=== PATIENT | female | born 1995 | race Hispanic/Latino ===

== ENCOUNTER 2018-01-21 20:47 | Emergency (ER) | payer SELFPAY ==
[2018-01-21] MEDS ORDERED: IBUPROFEN 800 MG TAB ONE (21:20)
[2018-01-21 21:28] LABS: APPEARANCE,URINE Clear (CLEAR); BILIRUBIN,URINE Negative (NEGATIVE); COLOR,URINE Yellow (YELLOW); GLUCOSE, URINE (UA) Negative (NEGATIVE); KETONES,URINE Negative (NEGATIVE); LEUKOCYTE ESTERASE ,URINE Trace (NEGATIVE); NITRATE,URINE Negative (NEGATIVE); OCCULT BLOOD,URINE Trace (NEGATIVE); PROTEIN,URINE Negative (NEGATIVE); UROBILINOGEN,URINE 0.2 mg/dL (0.2-1.0)
[2018-01-21 21:30] LABS: HCG,QUAL RESULT NEGATIVE (NEGATIVE)
[2018-01-21 21:45] LABS: AMPHET/METH SCREEN,URINE NEGATIVE (NEGATIVE); BARBITURATE SCREEN, URINE NEGATIVE (NEGATIVE); BENZODIAZEPINES SCREEN,URINE NEGATIVE (NEGATIVE); CANNABINOID SCREEN,URINE POSITIVE (NEGATIVE); COCAINE SCREEN,URINE NEGATIVE (NEGATIVE); OPIATE SCREEN,URINE NEGATIVE (NEGATIVE); PHENCYCLIDINE SCREEN,URINE NEGATIVE (NEGATIVE)
[2018-01-21 21:52] LABS: BACTERIA,URINE Rare /HPF (None Seen); RBC,URINE None Seen /HPF (0-1); WBC,URINE 0-1 /HPF (0-1)
== END 2018-01-21 22:20 | disposition home or self-care (01) ==
LOC: EDH 20:47
DX: R51 Headache (principal); F12.10 Cannabis abuse, uncomplicated; Z72.0 Tobacco use
CPT/HCPCS: 80305; 81001; 81025

== ENCOUNTER 2019-01-27 14:42 | Emergency (ER) | payer OTHER ==
[2019-01-27] MEDS ORDERED: ONDANSETRON ODT 4 MG TAB ONE (15:21)
[2019-01-27] MEDS ORDERED: ACETAMINOPHEN EXTRA STRENGTH 500 MG TABLET ONE (15:21)
[2019-01-27 15:27] LABS: APPEARANCE,URINE Clear (CLEAR); BILIRUBIN,URINE Negative (NEGATIVE); COLOR,URINE Yellow (YELLOW); GLUCOSE, URINE (UA) Negative (NEGATIVE); KETONES,URINE Negative (NEGATIVE); LEUKOCYTE ESTERASE ,URINE Large (NEGATIVE); NITRATE,URINE Negative (NEGATIVE); OCCULT BLOOD,URINE Small (NEGATIVE); PH,URINE 7.5 (5.0-8.0); PROTEIN,URINE POS 1+ (NEGATIVE)
[2019-01-27 15:41] LABS: HCG,QUAL RESULT NEGATIVE (NEGATIVE)
[2019-01-27 15:55] LABS: BACTERIA,URINE Few /HPF (None Seen); RBC,URINE None Seen /HPF (0-1); SQUAMOUS EPITHELIAL CELL,UR 0-2 /HPF (0-2); WBC,URINE 51-100 /HPF (0-1)
== END 2019-01-27 16:02 | disposition home or self-care (01) ==
LOC: EDH 14:42
DX: N39.0 Urinary tract infection, site not specified (principal)
CPT/HCPCS: 81001; 81025

== ENCOUNTER 2020-04-07 16:36 | Observation (INO) | payer MEDICAID ==
[2020-04-07 17:56] LABS: APPEARANCE,URINE Cloudy (CLEAR); BILIRUBIN,URINE Negative (NEGATIVE); COLOR,URINE Dark Yellow (YELLOW); GLUCOSE, URINE (UA) Negative (NEGATIVE); KETONES,URINE Trace mg/dL (NEGATIVE); LEUKOCYTE ESTERASE ,URINE Moderate (NEGATIVE); NITRATE,URINE Negative (NEGATIVE); OCCULT BLOOD,URINE Negative (NEGATIVE); PH,URINE 5.5 (5.0-8.0); PROTEIN,URINE Negative (NEGATIVE)
[2020-04-07 18:09] LABS: BACTERIA,URINE Moderate /HPF (None Seen); MUCUS,URINE Few LPF (None Seen); SQUAMOUS EPITHELIAL CELL,UR Moderate /HPF (0-2)
== END 2020-04-07 18:43 | disposition home or self-care (01) ==
LOC: LDH 16:36
PROVIDERS: ADMIT Obstetrics & Gynecology; ATTEND Obstetrics & Gynecology
DX: O26.893 Other specified pregnancy related conditions, third trimester (principal); R10.9 Unspecified abdominal pain; Z3A.29 29 weeks gestation of pregnancy
CPT/HCPCS: 81001; 87088; G0378 ×2

== ENCOUNTER 2020-06-12 01:15 | Inpatient (IN) | payer MEDICAID ==
[~2020-06-12] VITALS: Ht 154.9 cm; Wt 77.6 kg
[2020-06-12 01:28] VITALS: BP 138/86
[2020-06-12] MEDS ORDERED: PREN1TAB80 PO (01:30)
[2020-06-12 01:49] LABS: BILIRUBIN,URINE Negative (NEGATIVE); COLOR,URINE Yellow (YELLOW); GLUCOSE, URINE (UA) Negative (NEGATIVE); KETONES,URINE Trace mg/dL (NEGATIVE); LEUKOCYTE ESTERASE ,URINE Negative (NEGATIVE); NITRATE,URINE Negative (NEGATIVE); OCCULT BLOOD,URINE Negative (NEGATIVE); PROTEIN,URINE Negative (NEGATIVE)
[2020-06-12 01:57] LABS: APPEARANCE,URINE CLEAR (CLEAR)
[2020-06-12] MEDS ORDERED: OXYTOCIN-LR 20 UNITS/1000 ML 1,000 ML IV SCH ×2 (02:00→08:15)
[2020-06-12] MEDS ORDERED: AMPICILLIN 2GM+NS 100ML 100 ML IV SCH (02:00)
[2020-06-12 02:07] LABS: BACTERIA,URINE Few /HPF (None Seen); MUCUS,URINE Rare LPF (None Seen); RBC,URINE 0-1 /HPF (0-1)
[2020-06-12] MEDS: LACTATED RINGERS 1000ML IV PRN ×2 (02:11→07:12)
[2020-06-12 02:14] LABS: HEMATOCRIT 38.7 % (36-48); MEAN CORPUSCULAR HEMOGLOBIN 27.6 pg (27.0-33.0); MEAN CORPUSCULAR HGB CONC 32.6 g/dL (32.0-36.0); MEAN CORPUSCULAR VOLUME 84.7 fL (79-99); RED BLOOD CELL COUNT(AUTO) 4.57 MIL/uL (4.00-5.50); RED CELL DISTRIBUTION WIDTH 13.9 % (11.0-15.5); WHITE BLOOD COUNT (AUTO) 11.4 K/uL (4.8-10.8)
[2020-06-12] MEDS ORDERED: LACTATED RINGERS 1000ML 1,000 ML IV PRN (02:24)
[2020-06-12] MEDS ORDERED: PROMETHAZINE HCL 25 MG/ML 1ML AMPULE IM SCH (02:30)
[2020-06-12] MEDS ORDERED: MEPERIDINE-PF 50 MG/ML SYG IVP ONE (02:30)
[2020-06-12 03:09] LABS: AMPHET/METH SCREEN,URINE NEGATIVE (NEGATIVE); BARBITURATE SCREEN, URINE NEGATIVE (NEGATIVE); BENZODIAZEPINES SCREEN,URINE NEGATIVE (NEGATIVE); CANNABINOID SCREEN,URINE NEGATIVE (NEGATIVE); COCAINE SCREEN,URINE NEGATIVE (NEGATIVE); OPIATE SCREEN,URINE NEGATIVE (NEGATIVE); PHENCYCLIDINE SCREEN,URINE NEGATIVE (NEGATIVE)
[2020-06-12] MEDS ORDERED: MEPERIDINE-PF 50 MG/ML SYG ONE (03:22)
[2020-06-12] MEDS ORDERED: LACTATED RINGERS 500 ML 500 ML IV PRN (04:15)
[2020-06-12] MEDS ORDERED: EPHEDRINE SULFATE 50 MG/ML AMPULE IVP PRN (04:15)
[2020-06-12] MEDS ORDERED: NALOXONE HCL 0.4 MG/1 ML ML IV PRN (04:15)
[2020-06-12] MEDS ORDERED: ROPIVACAINE 0.2% 100ML VIAL 100 ML EP PRN (04:15)
[2020-06-12] MEDS ORDERED: LIDOCAINE HCL 1% 20 ML VIAL ONE (04:37)
[2020-06-12] MEDS: LACTATED RINGERS 1000ML 1,000 ML IV PRN ×3 (05:14→22:13)
[2020-06-12] MEDS ORDERED: FENTANYL CITRATE PF 50 MCG/1 ML 2ML VIAL ONE (05:42)
[2020-06-12] MEDS ORDERED: AMPICILLIN 1GM+NS 50ML 50 ML IV SCH (06:00)
[2020-06-12] MEDS ORDERED: OXYTOCIN 10 USP UNITS/ML 20 UNIT in LACTATED RINGERS 1000ML 1,000 ML IV SCH (07:30)
[2020-06-12 10:01] LABS: RAPID PLASMA REAGIN NONREACTIVE (NONREACTIVE)
[2020-06-12] MEDS ORDERED: ACETAMINOPHEN 325 MG TAB PO PRN (14:15)
[2020-06-12] MEDS ORDERED: DIPH,PERTUSS(ACELL),TET VAC/PF 0.5 ML VIAL IM PRN (14:15)
[2020-06-12] MEDS ORDERED: BENZOCAINE/LANOLIN/ALOE VERA 60 ML AEROSOL TP PRN (14:15)
[2020-06-12] MEDS ORDERED: WITCH HAZEL 1 PAD TP PRN (14:15)
[2020-06-12] MEDS ORDERED: ACETAMINOPHEN-CODEINE 300/30MG TAB PO PRN (14:15)
[2020-06-12] MEDS ORDERED: MEASLES/MUMPS/RUBELLA VACCINE, LIVE 0.5 ML/VIAL SQ PRN (14:15)
[2020-06-12] MEDS ORDERED: LANOLIN 30GM OINTMENT TP PRN (14:15)
[2020-06-12 14:40] VITALS: BP 105/59
[2020-06-12] MEDS: IBUPROFEN 600 MG TABLET PO PRN ×2 (14:43→21:35)
[2020-06-12 16:15] VITALS: BP 104/72
[2020-06-12 20:08] VITALS: BP 114/58
[2020-06-12] MEDS: DOCUSATE SODIUM 100 MG CAP PO SCH (21:33)
[2020-06-12 23:24] VITALS: BP 118/73
[2020-06-13 03:17] VITALS: BP 98/60
[2020-06-13] MEDS: IBUPROFEN 600 MG TABLET PO PRN ×2 (03:54→08:32)
[2020-06-13 07:03] LABS: HEMATOCRIT 28.6 % (36-48); MEAN CORPUSCULAR HEMOGLOBIN 27.2 pg (27.0-33.0); MEAN CORPUSCULAR HGB CONC 31.8 g/dL (32.0-36.0); MEAN CORPUSCULAR VOLUME 85.6 fL (79-99); RED BLOOD CELL COUNT(AUTO) 3.34 MIL/uL (4.00-5.50); RED CELL DISTRIBUTION WIDTH 14.3 % (11.0-15.5); WHITE BLOOD COUNT (AUTO) 11.5 K/uL (4.8-10.8)
[2020-06-13 07:10] VITALS: BP 93/68
[2020-06-13] MEDS: DOCUSATE SODIUM 100 MG CAP PO SCH (08:27)
--- NOTE | 2020-06-13 09:55 | NUR ---
DR. CH ROUNDED AND DISCHARGED PATIENT TO HOME. PATIENT STABLE AND DENIES ANY PROBLEMS.
[2020-06-13 10:12] LABS: HEPATITIS Bs ANTIGEN SCREEN P Negative (Negative)
[2020-06-13 11:26] VITALS: BP 99/71
--- NOTE | 2020-06-13 12:10 | NUR ---
PATIENT WAS GIVEN DISCHARGE INSTRUCTIONS AND VERBALIZED UNDERSTANDING INSTRUCTIONS GIVEN. SCRIPT FOR COLACE AND MOTRIN ISSUED AND INSTRUCTED ON DOSAGE AND FREQUENCY. PATIENT STABLE AND DENIES PAIN.
--- NOTE | 2020-06-13 12:20 | NUR ---
PATIENT WAS TAKEN VIA W/C CARRYING BABY IN ARMS TO FAMILY VEHICLE AND WAS DISCHARGED TO HER SPOUSE IN STABLE CONDITION. PATIENT DENIES PAIN AND HAS REMAINED STABLE AND AFEBRILE.
== END 2020-06-13 12:20 | disposition home or self-care (01) | DRG 560 ==
LOC: EDH 01:15 → LDH 01:16 → OBSVTOIN 01:16 → WSH 14:35
PROVIDERS: ADMIT Obstetrics & Gynecology; ATTEND Obstetrics & Gynecology
PROC: 10E0XZZ Delivery of Products of Conception, External Approach (ICD-10-PCS; principal; 2020-06-12)
PROC: 6A550ZT Pheresis of Cord Blood Stem Cells, Single (ICD-10-PCS; 2020-06-12)
PROC: 10907ZC Drainage of Amniotic Fluid, Therapeutic from Products of Conception, Via Natural or Artificial Opening (ICD-10-PCS; 2020-06-12)
PROC: 0UQGXZZ Repair Vagina, External Approach (ICD-10-PCS; 2020-06-12)
PROC: 00HU33Z Insertion of Infusion Device into Spinal Canal, Percutaneous Approach (ICD-10-PCS; 2020-06-12)
PROC: 3E0R3BZ Introduction of Anesthetic Agent into Spinal Canal, Percutaneous Approach (ICD-10-PCS; 2020-06-12)
PROC: 0UQMXZZ Repair Vulva, External Approach (ICD-10-PCS; 2020-06-12)
DX: O71.4 Obstetric high vaginal laceration alone (principal); Z37.0 Single live birth; O71.82 Other specified trauma to perineum and vulva; Z3A.38 38 weeks gestation of pregnancy
CPT/HCPCS: 36415; 80305; 81001; 85027; 86156; 86592; 86701; 86850; 86870; 86900; 86901; 87340; 87390; A4314; G0378; J0290; J2175; J2590; J3010; J3490; J7120

== ENCOUNTER 2022-07-01 09:11 | Emergency (ER) | payer MEDICAID ==
[~2022-07-01] VITALS: Ht 152.4 cm; Wt 79.4 kg
[~2022-07-01 09:11] MED LIST: PREN1TAB80 PO
[2022-07-01] MEDS ORDERED: KETOROLAC 15MG/ML VIAL (15MG/ML) IV ONE (09:30)
[2022-07-01] MEDS ORDERED: LACTATED RINGERS 1000ML 1,000 ML IV ONE (09:30)
[2022-07-01] MEDS ORDERED: ONDANSETRON 4MG INJ IVP ONE (09:30)
[2022-07-01 09:42] LABS: BASOPHILS % (AUTO) 0.4 % (0.0-5.0); EOSINOPHILS % (AUTO) 0.7 % (0.0-8.0); HEMATOCRIT 42.9 % (36-48); LYMPHOCYTES % (AUTO) 18.3 % (21.0-51.0); MEAN CORPUSCULAR VOLUME 88.3 fL (79-99); MONOCYTES % (AUTO) 5.3 % (3.0-13.0); NEUTROPHILS % (AUTO) 74.9 % (40.0-77.0); PLATELET COUNT (AUTO) 312 K/uL (130-400); RED BLOOD CELL COUNT(AUTO) 4.86 MIL/uL (4.00-5.50); RED CELL DISTRIBUTION WIDTH 11.5 % (11.0-15.5)
[2022-07-01 09:47] LABS: APPEARANCE,URINE TURBID (CLEAR); BILIRUBIN,URINE NEGATIVE (NEGATIVE); COLOR,URINE YELLOW (YELLOW); GLUCOSE, URINE (UA) NEGATIVE (NEGATIVE); KETONES,URINE NEGATIVE (NEGATIVE); LEUKOCYTE ESTERASE ,URINE LARGE (NEGATIVE); NITRATE,URINE NEGATIVE (NEGATIVE); OCCULT BLOOD,URINE MODERATE (NEGATIVE); PROTEIN,URINE 30 mg/dL (NEGATIVE)
[2022-07-01 09:49] LABS: HCG,QUALITATIVE URINE NEGATIVE (NEGATIVE)
[2022-07-01 09:56] LABS: BACTERIA,URINE Many /HPF (None Seen); RBC,URINE 26-50 /HPF (0-1); WBC,URINE >100 /HPF (0-1)
[2022-07-01 09:57] LABS: ALBUMIN 3.8 g/dL (3.5-5.0); CREATININE 0.6 mg/dL (0.5-1.5); MUCUS,URINE Few LPF (None Seen); POTASSIUM 3.9 mmol/L (3.5-5.1); TOTAL PROTEIN, SERUM 8.2 g/dL (6.0-8.3)
[2022-07-01] MEDS ORDERED: SULF1TAB42 PO (10:45)
[2022-07-01] MEDS ORDERED: IBUP-2071 PO (10:45)
[2022-07-01] MEDS ORDERED: CEFTRIAXONE 1G VIAL IVP ONE (11:00)
[2022-07-01 11:10] VITALS: BP 129/84
== END 2022-07-01 11:21 | disposition home or self-care (01) ==
LOC: EDH 09:11
DX: N12 Tubulo-interstitial nephritis, not specified as acute or chronic (principal); Z79.1 Long term (current) use of non-steroidal anti-inflammatories (NSAID)
CPT/HCPCS: 99284; 96374; 96375; 96361; 80053; 85025; 87077; 87088; 87186; 81001; 81025; 36415; J7120; J0696; J2405; J1885

== ENCOUNTER 2022-09-18 18:39 | Emergency (ER) | payer MEDICAID ==
[~2022-09-18] VITALS: Ht 154.9 cm; Wt 81.0 kg
[~2022-09-18 18:39] MED LIST changes: +IBUP-2071 PO; +SULF1TAB42 PO
[2022-09-18 18:43] VITALS: BP 133/76
[2022-09-18 19:29] LABS: APPEARANCE,URINE CLOUDY (CLEAR); BILIRUBIN,URINE NEGATIVE (NEGATIVE); COLOR,URINE LIGHT-YELLOW (YELLOW); GLUCOSE, URINE (UA) NEGATIVE (NEGATIVE); KETONES,URINE NEGATIVE (NEGATIVE); LEUKOCYTE ESTERASE ,URINE 500 Leu/uL (NEGATIVE); NITRATE,URINE NEGATIVE (NEGATIVE); OCCULT BLOOD,URINE SMALL (NEGATIVE); PH,URINE 6.5 (5.0-8.0); PROTEIN,URINE NEGATIVE (NEGATIVE); UROBILINOGEN,URINE 0.2 mg/dL (0.2-1.0)
[2022-09-18 19:46] LABS: BASOPHILS % (AUTO) 0.5 % (0.0-5.0); EOSINOPHILS % (AUTO) 0.9 % (0.0-8.0); HEMATOCRIT 44.2 % (36-48); LYMPHOCYTES % (AUTO) 27.6 % (21.0-51.0); MEAN CORPUSCULAR HEMOGLOBIN 30.1 pg (27.0-33.0); MEAN CORPUSCULAR HGB CONC 34.2 g/dL (32.0-36.0); MEAN CORPUSCULAR VOLUME 88.2 fL (79-99); MONOCYTES % (AUTO) 3.8 % (3.0-13.0); NEUTROPHILS % (AUTO) 66.7 % (40.0-77.0); PLATELET COUNT (AUTO) 353 K/uL (130-400); RED BLOOD CELL COUNT(AUTO) 5.01 MIL/uL (4.00-5.50); RED CELL DISTRIBUTION WIDTH 12.3 % (11.0-15.5); WHITE BLOOD COUNT (AUTO) 11.7 K/uL (4.8-10.8)
[2022-09-18 19:57] LABS: BACTERIA,URINE FEW /HPF (None Seen); MUCUS,URINE RARE LPF (None Seen); SQUAMOUS EPITHELIAL CELL,UR RARE /HPF (0-2); WBC,URINE 51-100 /HPF (0-1); YEAST,URINE BUDDING FEW /HPF (None Seen)
[2022-09-18] MEDS ORDERED: CEFTRIAXONE 1G VIAL IM ONE (20:00)
[2022-09-18] MEDS ORDERED: PHENAZOPYRIDINE HCL 200 MG TABLET PO ONE (20:00)
[2022-09-18 20:07] LABS: CREATININE 0.7 mg/dL (0.5-1.5); POTASSIUM 3.6 mmol/L (3.5-5.1)
[2022-09-18 20:12] LABS: ALBUMIN 3.9 g/dL (3.5-5.0); TOTAL PROTEIN, SERUM 8.4 g/dL (6.0-8.3)
[2022-09-18] MEDS ORDERED: PHEN-847 PO (20:18)
[2022-09-18] MEDS ORDERED: CEFU500T67 PO (20:18)
== END 2022-09-18 20:28 | disposition home or self-care (01) ==
LOC: EDH 18:39
DX: N39.0 Urinary tract infection, site not specified (principal); E66.9 Obesity, unspecified; Z68.33 Body mass index [BMI] 33.0-33.9, adult; Z79.899 Other long term (current) drug therapy
CPT/HCPCS: 99283; 80053; 85025; 87077; 87088; 87186; 86140; 81001; 81025; 36415; 96372; J0696

== ENCOUNTER 2022-11-19 11:53 | Emergency (ER) | payer MEDICAID ==
[~2022-11-19] VITALS: Ht 154.9 cm; Wt 80.7 kg
[~2022-11-19 11:53] MED LIST changes: +CEFU500T67 PO; +PHEN-847 PO
[2022-11-19 12:21] LABS: BASOPHILS % (AUTO) 0.4 % (0.0-5.0); EOSINOPHILS % (AUTO) 0.3 % (0.0-8.0); HEMATOCRIT 42.2 % (36-48); LYMPHOCYTES % (AUTO) 19.2 % (21.0-51.0); MEAN CORPUSCULAR HEMOGLOBIN 30.1 pg (27.0-33.0); MEAN CORPUSCULAR HGB CONC 34.6 g/dL (32.0-36.0); MONOCYTES % (AUTO) 4.6 % (3.0-13.0); PLATELET COUNT (AUTO) 403 K/uL (130-400); RED BLOOD CELL COUNT(AUTO) 4.85 MIL/uL (4.00-5.50); RED CELL DISTRIBUTION WIDTH 11.6 % (11.0-15.5); WHITE BLOOD COUNT (AUTO) 11.2 K/uL (4.8-10.8)
[2022-11-19 12:26] LABS: APPEARANCE,URINE CLEAR (CLEAR); BILIRUBIN,URINE NEGATIVE (NEGATIVE); COLOR,URINE LIGHT-YELLOW (YELLOW); GLUCOSE, URINE (UA) NEGATIVE (NEGATIVE); HCG,QUALITATIVE URINE NEGATIVE (NEGATIVE); KETONES,URINE 5 mg/dL (NEGATIVE); LEUKOCYTE ESTERASE ,URINE 75 Leu/uL (NEGATIVE); NITRATE,URINE NEGATIVE (NEGATIVE); OCCULT BLOOD,URINE SMALL (NEGATIVE); PROTEIN,URINE 30 mg/dL (NEGATIVE); UROBILINOGEN,URINE 0.2 mg/dL (0.2-1.0)
[2022-11-19 12:28] LABS: CREATININE 0.7 mg/dL (0.5-1.5); POTASSIUM 4.2 mmol/L (3.5-5.1)
[2022-11-19 12:33] LABS: ALBUMIN 4.1 g/dL (3.5-5.0); TOTAL PROTEIN, SERUM 8.5 g/dL (6.0-8.3)
[2022-11-19 12:38] LABS: BACTERIA,URINE RARE /HPF (None Seen); MUCUS,URINE FEW LPF (None Seen); SQUAMOUS EPITHELIAL CELL,UR RARE /HPF (0-2)
[2022-11-19] MEDS ORDERED: SULF1TAB42 PO (15:15)
[2022-11-19 15:21] VITALS: BP 107/72
== END 2022-11-19 15:24 | disposition home or self-care (01) ==
LOC: EDH 11:53
DX: N93.9 Abnormal uterine and vaginal bleeding, unspecified (principal); N39.0 Urinary tract infection, site not specified; R11.2 Nausea with vomiting, unspecified
CPT/HCPCS: 36415; 74176; 76856; 80053; 81001; 81025; 85025; 86850; 86900; 86901; 87088

== ENCOUNTER 2025-07-21 17:10 | Emergency (ER) | payer SELFPAY ==
[~2025-07-21] VITALS: Ht 154.9 cm; Wt 86.2 kg
--- NOTE | 2025-07-21 17:36 | ERN ---
ED Note History of Present Illness Stated Complaint: VAGINAL BLEEDING, + TEST Chief Complaint: Vaginal Bleeding Time Seen by MD: 17:13 Time Seen by Midlevel: 17:13 Dictation: The Please the patient is a 29-year-old female with no past medical history who presents to the emergency department with complaints of suprapubic abdominal pain and vaginal spotting onset yesterday. Reports she had a positive test but does not know how many weeks. Patient reports she had some bright v aginal bleeding yesterday and it stop throughout night but it started again 2 hours. Denies any saturating pads in the last 2 hours. Denies any urinary discomfort. Denies any fevers diarrhea or vomiting. Allergies: Coded Allergies: No Known Allergies (Unverified Allergy, Unknown, 06/12/20) Home Meds Active Scripts Sulfamethoxazole/Trimethoprim (Bactrim Ds Tablet) 1 Each Tablet, 1 TAB PO BID for 7 Days, #14 TAB 0 Refills Prov:ISABEL NUNN V CHEST PAIN COORDINATOR 11/19/22 Phenazopyridine HCl (Pyridium) 200 Mg Tab, 200 MG PO TIDPC for 3 Days, #9 TAB TAKE WITH FOOD TO PREVENT STOMACH UPSET. Prov:SHENG ARREAGA 09/18/22 Cefuroxime Axetil (Cefuroxime) 500 Mg Tablet, 500 MG PO BID for 10 Days, #20 TAB Prov:SHENG ARREAGA 09/18/22 Ibuprofen (Ibuprofen) 800 Mg Tablet, 800 MG PO Q8H PRN for PAIN, #30 TAB 0 Refills Prov:CLAYTON LIU MD 07/01/22 Sulfamethoxazole/Trimethoprim (Bactrim Ds Tablet) 1 Each Tablet, 1 TAB PO BID for 10 Days, #20 TAB 0 Refills Prov:CLAYTON LIU MD 07/01/22 Reported Medications Vits W-Ca,Fe,FA(<1Mg) ( Vitamins) 1 Each Tablet, 1 EACH PO DAILY, TAB 06/12/20 Past Medical History Past Medical History: No Pertinent History Additional Past Medical Hx: Obese Surgical History: None Family History: Negative Social History: Negative LMP: Jun 11, 2025 : 2 Para: 1 RN Note Reviewed/Agreed w/PFSH: Yes Review of System Dictation Constitutional: Negative for fever,chills, and weight loss Eyes: Negative for injury, pain,redness, and discharge ENT: Negative for injury,pain or swelling Cardiovascular: Negative for chest pain, palpitations, and edema Respiratory: Negative for shortness of breath, cough, and wheezing, Abdomen/GI: Negative for nausea, vomiting, diarrhea, and constipation positive abdominal pain Back: Negative for injury and pain : Negative for injury, and discharge positive for vaginal bleeding MS/Extremity: Negative for injury and deformity Skin: Negative for rash, and discoloration Neuro: Negative for headache, weakness, numbness, tingling, and seizure Psych: Negative for suicide ideation, homicidal ideation, and hallucinations Initial Vital Sign VS Vital Signs Date Time Temp Pulse Resp B/P (MAP) Pulse Ox O2 Delivery O2 Flow Rate FiO2 07/21/25 17:11 98.1 104 16 139/83 98 Room Air 0 07/21/25 17:31 21 Physical Exam Dictation Vital Signs reviewed General Appearance: Alert, oriented x 3, no acute distress, well developed, nourished. Head and Face: non-traumatic. Eyes: PERRL, pink conjunctivas, eyelid no trauma, anterior chamber with arcus senilis. Ears: Pinnas intact and no signs of trauma or erythema ear canals clear and no discharge TM no erythema Nose: No discharge, no bleeding. Oropharynx: Mouth normal, tongue pink. pharynx clear,no erythema, tonsils no exudates, no abscesses noted, mucous membrane moist Neck: Supple, non-tender, no thyromegaly, no masses, no JVD, no bruits Breast:Deferred Chest:No tenderness, no crepitus, no paradoxical movement, no retractions Lungs:Clear, well-ventilated, symmetric, no rales, no wheezing, no rhonchi, no stridor, good breath sounds bilaterally Heart: Regular rate, regular rhythm, no murmur, no gallops Vascular: no peripheral edema, Abdomen: Soft, positive bowel sounds, nondistended, no guarding, nontender, no rebound, no masses no hepatomegaly, no splenomegaly, no Ghosh's sign, no hernias. Rectal: Deferred Genital: Deferred Neurological: Normal speech, motor function intact, sensory function intact Musculoskeletal: Neck nontender, full range of motion, back nontender, full range of motion, Extremities: nontender, full range of motion Skin: Color pink, dry, no turgor, no rash, no lacerations, no abrasions, no contusions. Lymphatic: Deferred Results (Laboratory/Radiology) Laboratory/Radiology Laboratory Tests Test 07/21/25 17:30 07/21/25 17:40 Urine Color YELLOW (YELLOW) Urine Appearance CLEAR (CLEAR) Urine pH 6.0 (5.0-8.0) Urine Specific [place] 1.025 (1.001-1.031) Urine Protein NEGATIVE mg/dL (NEGATIVE) Urine Glucose (UA) NEGATIVE mg/dL (NEGATIVE) Urine Ketones NEGATIVE mg/dL (NEGATIVE) Urine Occult Blood SMALL (NEGATIVE) H Urine Nitrate NEGATIVE (NEGATIVE) Urine Bilirubin NEGATIVE mg/dL (NEGATIVE) Urine Urobilinogen 2.0 mg/dL (0.2-1.0) H Urine Leukocyte Esterase NEGATIVE Dayna/uL Urine RBC 2-5 /HPF (0-1) H Urine WBC 2-5 /HPF (0-1) H Urine Squamous Epithelial Cells RARE /HPF (0-2) Urine Bacteria MANY /HPF (None Seen) White Blood Count 8.8 K/uL (4.8-10.8) Red Blood Count 4.76 MIL/uL (4.00-5.50) Hemoglobin 15.0 g/dL (12.0-16.0) Hematocrit 43.4 % (36-48) Mean Corpuscular Volume 91.2 fL (79-99) Mean Corpuscular Hemoglobin 31.5 pg (27.0-33.0) Mean Corpuscular Hemoglobin Concent 34.6 g/dL (32.0-36.0) Red Cell Distribution Width 11.9 % (11.0-15.5) Platelet Count 332 K/uL (130-400) Mean Platelet Volume 7.9 fL (7.5-10.5) Immature Granulocyte % (Auto) 0.5 % (0-1) Neutrophils (%) (Auto) 68.2 % (40.0-77.0) Lymphocytes (%) (Auto) 22.3 % (21.0-51.0) Monocytes (%) (Auto) 8.3 % (3.0-13.0) Eosinophils (%) (Auto) 0.2 % (0.0-8.0) Basophils (%) (Auto) 0.5 % (0.0-5.0) Neutrophils # (Auto) 6.0 K/uL (1.8-7.7) Lymphocytes # (Auto) 2.0 K/uL (1.0-4.8) Monocytes # (Auto) 0.7 K/uL (0.1-1.0) Eosinophils # (Auto) 0.02 K/uL (0.00-0.70) Basophils # (Auto) 0.04 K/uL (0.00-0.20) Absolute Immature Granulocyte (auto 0.04 K/uL (0-1) Nucleated Red Blood Cells 0.0 % (0.0-0.19) Sodium Level 136 mmol/L (136-145) Potassium Level 3.3 mmol/L (3.5-5.1) L Chloride Level 100 mmol/L (101-111) L Carbon Dioxide Level 30 mmol/L (21-32) Blood Urea Nitrogen 6 mg/dL (7-18) L Creatinine 0.6 mg/dL (0.5-1.0) Glomerular Filtration Rate Calc 125 mL/min (>90) Random Glucose 101 mg/dL (70-105) Total Calcium 8.9 mg/dL (8.5-10.1) Human Chorionic Gonadotropin, Quant 1198 mIU/mL (0-5) H REASON: VAGINAL BLEEDING ORDERING PHYSICIAN: FROY RAMÍREZ PROCEDURE: OB <14 - US OB <14 WEEKS CLINICAL INFORMATION Vaginal bleeding COMPARISON None. TECHNIQUE Transabdominal sonography of the pelvis. FINDINGS Uterus: Normal. Endometrium: Normal. No gestational sac or intrauterine visualized. Adnexa: The right ovary is obscured by overlying bowel gas. Left ovary is normal in size and morphology, with normal vascularity. Free Fluid: No abnormal fluid. MEASUREMENTS Uterus (LxHxW cm): 9.9 x 5.0 x 6.4 cm Endometrial thickness: 1.6 cm Right Ovary (LxHxW cm): Not visualized Left Ovary (LxHxW cm): 2.5 x 1.9 x 3.2 cm IMPRESSION No intrauterine gestational sac identified. Given the history of positive b-hCG, the differential considerations include early non-visualized intrauterine , non-visualized ectopic and failed first trimester . Recommend close clinical follow-up with [facility] and serial b-hCG. Follow-up ultrasound is available as indicated. Nonvisualized right ovary. /[facility] Labs Reviewed?: Yes ED Course ED Course Orders Procedure Category Date Status Time Cbc With Differential LAB 07/21/25 Complete 17:20 Hcg,Quantitative LAB 07/21/25 Complete 17:20 Us Ob <14 Weeks US 07/21/25 Resulted 17:20 Acetaminophen 325 Tab PHA 07/21/25 In Process (Tylenol 325mg Tab 17:30 Basic Metabolic Panel LAB 07/21/25 Complete 17:20 Urinalysis Profile LAB 07/21/25 Complete 17:20 Culture Urine ZOHREH 07/21/25 In Process 18:00 Current Medications Medications (Trade) Dose Ordered Sig/[place] Route PRN Reason Start Time Stop Time Status Last Admin Dose Admin Acetaminophen (TYLenol 325MG TAB) 650 mg ONCE PO 07/21/25 17:30 07/21/25 21:30 07/21/25 17:38 Vital Signs Date Time Temp Pulse Resp B/P (MAP) Pulse Ox O2 Delivery O2 Flow Rate FiO2 07/21/25 17:31 98.1 104 16 139/83 98 Room Air* 0 21 07/21/25 17:11 98.1 104 16 139/83 98 Room Air 0 Medical Decision Making MDM The Please the patient is a 29-year-old female with no past medical history who presents to the emergency department with complaints of suprapubic abdominal pain and vaginal spotting onset yesterday. Reports she had a positive test but does not know how many weeks. Patient reports she had some bright vaginal bleeding yesterday and it stop throughout night but it started again 2 hours. Denies any saturating pads in the last 2 hours. Denies any urinary di scomfort. Denies any fevers diarrhea or vomiting. CBC showed no leukocytosis, no anemia, chemistry showed mild hypokalemia, mild hypochloremia, HCT of the a 1198, urinalysis negative for nitrites, negative for leukocyte esterase. No intrauterine gestational sac , could be early in . On physical exam patient is in no acute distress, nontoxic appearance. Has not saturated any pads while in ER. No significant vaginal bleeding. Vital signs remained stable. Patient instructed to follow up with OBGYN for repeat HCT in ultrasound. Labs and imaging discussed with the patient who agrees to follow up. Patient instructed to return if she develops severe abdominal pain or severe vaginal bleeding. Differential diagnosis: UTI, threatened , ectopic Need for hospitalization: Patient does not meet criteria for hospitalization. There are no social concerns with this patient. DX & DISP Disposition: Discharge Departure Impression: Primary Impression: Positive test Additional Impression: Vaginal bleeding Condition: Stable Additional Instructions: Your labs were unremarkable. You will need to follow up with your OBGYN as soon as possible and you will need a repeat lab work and Ultrasound. Get plenty of rest. If you develop severe vaginal bleeding dizziness , or severe abdominal pain please return to ER or call 911. FOLLOW-UP WITH PRIMARY CARE PROVIDER IN 1 TO 2 DAYS. TAKE MEDICATIONS DIRECTED HERE IN THE EMERGENCY ROOM. OKAY TO CONTINUE HOME MEDICATIONS UNLESS OTHERWISE DISCUSSED DURING YOUR VISIT IN THE EMERGENCY ROOM TODAY. RETURN TO YOUR NEAREST EMERGENCY ROOM IF SYMPTOMS WORSEN OR IF THERE IS NO IMPROVEMENT. CALL 911 IF YOU NEED IMMEDIATE ASSISTANCE. TAKE TYLENOL [id number] NEEDED AND IF NO CONTRAINDICATIONS ARE PRESENT. INCREASE ORAL HYDRATION. A WOUND CULTURE OR URINE CULTURE WAS ORDERED HERE IN THE EMERGENCY ROOM DEPARTMENT PLEASE FOLLOW-UP WITH PRIMARY CARE PROVIDER AND ADVISE THEM TO GET REPEAT PORTS FROM OUR FACILITY. IF YOU HAD ANY MARIELA WRAP/SPLINTS THAT WERE APPLIED HERE, PLEASE DO NOT REMOVE THEM UNTIL YOU SEE YOUR PRIMARY CARE OR SPECIALTY. Referrals: RONY CANNON MD (PCP) Time of Disposition: 19:31 I have reviewed the case, and I agree with, Diagnosis and Plan FROY RAMÍREZ CHEST PAIN COORDINATOR Jul 21, 2025 17:35
[2025-07-21 17:48] LABS: IMMATURE GRANULOCYTE ABSOLUTE 0.04 K/uL (0-1); NUCLEATED RED BLOOD CELLS 0.0 % (0.0-0.19); PLATELET COUNT (AUTO) 332 K/uL (130-400); RED BLOOD CELL COUNT(AUTO) 4.76 MIL/uL (4.00-5.50); RED CELL DISTRIBUTION WIDTH 11.9 % (11.0-15.5); WHITE BLOOD COUNT (AUTO) 8.8 K/uL (4.8-10.8)
[2025-07-21 17:50] LABS: APPEARANCE,URINE CLEAR (CLEAR); GLUCOSE, URINE (UA) NEGATIVE (NEGATIVE); LEUKOCYTE ESTERASE ,URINE NEGATIVE Leu/uL (NEGATIVE); NITRATE,URINE NEGATIVE (NEGATIVE); OCCULT BLOOD,URINE SMALL (NEGATIVE)
[2025-07-21 17:55] LABS: CREATININE 0.6 mg/dL (0.5-1.0); GLOMERULAR FILTR. RATE CALC 125.0 mL/min (>90); GLUCOSE,RANDOM 101.0 mg/dL (70-105); SODIUM SERUM 136.0 mmol/L (136-145); UREA NITROGEN, BLOOD 6.0 mg/dL (7-18)
[2025-07-21 17:57] LABS: ADD UA MICROSCOPIC YES
[2025-07-21 18:00] LABS: SQUAMOUS EPITHELIAL CELL,UR RARE /HPF (0-2)
[2025-07-21 18:22] LABS: HCG,QUANTITATIVE 1198.0 mIU/mL (0-5)
--- NOTE | 2025-07-21 19:21 | HMCIMG ---
CLINICAL INFORMATION Vaginal bleeding COMPARISON None. TECHNIQUE Transabdominal sonography of the pelvis. FINDINGS Uterus: Normal. Endometrium: Normal. No gestational sac or intrauterine visualized. Adnexa: The right ovary is obscured by overlying bowel gas. Left ovary is normal in size and morphology, with normal vascularity. Free Fluid: No abnormal fluid. MEASUREMENTS Uterus (LxHxW cm): 9.9 x 5.0 x 6.4 cm Endometrial thickness: 1.6 cm Right Ovary (LxHxW cm): Not visualized Left Ovary (LxHxW cm): 2.5 x 1.9 x 3.2 cm IMPRESSION No intrauterine gestational sac identified. Given the history of positive b-hCG, the differential considerations include early non-visualized intrauterine , non-visualized ectopic and failed first trimester . Recommend close clinical follow-up with [facility] and serial b-hCG. Follow-up ultrasound is available as indicated. Nonvisualized right ovary. /[place]
[2025-07-21 19:35] VITALS: BP 127/74; PULSE 92; RESP 16; TEMP 98.1; O2SAT 98
== END 2025-07-21 19:36 | disposition home or self-care (01) ==
LOC: EDH 17:10
DX: O20.9 Hemorrhage in early pregnancy, unspecified (principal); Z3A.00 Weeks of gestation of pregnancy not specified
CPT/HCPCS: 36415; 76801; 80048; 81001; 84702; 85025; 87086; 87186; 99284

== ENCOUNTER 2025-08-07 15:13 | Emergency (ER) | payer MEDICAID ==
[~2025-08-07] VITALS: Ht 154.9 cm; Wt 83.0 kg
--- NOTE | 2025-08-07 15:51 | NUR ---
PT PRESENTS TO ER 8 WKS PREG VAGINAL BLEEDING X2 WKS OB APPT SCHED FOR COMMING MONDAY HOWEVER BLEEDING INCREASED AND LARGE CLOTS PASSED PRIOR TO ARRIVAL AND PT CONCERNED ABOUT AT RISK
[2025-08-07 16:08] LABS: ADD UA MICROSCOPIC YES; APPEARANCE,URINE CLEAR (CLEAR); GLUCOSE, URINE (UA) NEGATIVE (NEGATIVE); LEUKOCYTE ESTERASE ,URINE 75 Leu/uL (NEGATIVE); NITRATE,URINE NEGATIVE (NEGATIVE); OCCULT BLOOD,URINE LARGE (NEGATIVE)
[2025-08-07 16:10] LABS: SQUAMOUS EPITHELIAL CELL,UR RARE /HPF (0-2); UNCLASSIFIED CRYSTAL 1 /HPF (None Seen)
[2025-08-07 16:16] LABS: IMMATURE GRANULOCYTE ABSOLUTE 0.05 K/uL (0-1); NUCLEATED RED BLOOD CELLS 0.0 % (0.0-0.19); PLATELET COUNT (AUTO) 377 K/uL (130-400); RED BLOOD CELL COUNT(AUTO) 4.61 MIL/uL (4.00-5.50); RED CELL DISTRIBUTION WIDTH 11.4 % (11.0-15.5); WHITE BLOOD COUNT (AUTO) 12.6 K/uL (4.8-10.8)
[2025-08-07 16:25] LABS: CREATININE 0.6 mg/dL (0.5-1.0); GLOMERULAR FILTR. RATE CALC 125.0 mL/min (>90); GLUCOSE,RANDOM 92.0 mg/dL (70-105); SODIUM SERUM 133.0 mmol/L (136-145); UREA NITROGEN, BLOOD 6.0 mg/dL (7-18)
[2025-08-07 16:52] LABS: HCG,QUANTITATIVE 13097.0 mIU/mL (0-5)
--- NOTE | 2025-08-07 17:26 | HMCIMG ---
CLINICAL INFORMATION Vaginal bleeding COMPARISON US OB dated 07/21/2025 TECHNIQUE Transabdominal sonography of the pelvis. FINDINGS Uterus: Gravid Gestational Sac: Single intrauterine gestational sac measuring 1.36 cm, corresponding to a gestational age of 6 weeks 3 days ??? 4 days. Yolk Sac: The Yolk sac is visualized within the gestational sac. Embryo: Bowie-rump length measures 0.3 cm, corresponding to 6 weeks 4 days ??? 4 days. Heart Activity: heart rate is 131 beats per minute. Adnexa: The bilateral ovary is normal in size and morphology, with normal vascularity. Free Fluid: No abnormal fluid. MEASUREMENTS Uterus (LxHxW cm): 9.8 x 6.9 x 5.8 cm Endometrial thickness: 1.5 cm. Right Ovary (LxHxW cm): 1.8 x 1.4 x 2.1 cm Left Ovary (LxHxW cm): 1.7 x 1.9 x 1.1 cm IMPRESSION: 1. Single viable intrauterine at 6 weeks 3-4 days gestation. 2. heart rate of 131 beats per minute. /[place]
--- NOTE | 2025-08-07 18:56 | NUR ---
Single viable intrauterine at 6 weeks 3-4 days gestation. heart rate of 131 beats per minute.
[2025-08-07 18:57] VITALS: BP 142/85; PULSE 92; RESP 16; TEMP 98.3; O2SAT 98
--- NOTE | 2025-08-07 19:01 | ERN ---
General Chief Complaint: Vaginal Bleeding Stated Complaint: VAGINAL BLEEDING, 8 WEEKS GESTATION Time Seen by MD: 15:54 Time Seen by Midlevel: 15:54 Source: patient History of Present Illness Initial Comments The patient is a 29-year-old female who is currently presenting to the emergency department for evaluation of vaginal bleeding and lower abdominal cramping. Patient reports testing positive for gonorrhea proximally one week ago and has not been treated for it. She is a A0. She has an appointment scheduled with her OBGYN in four days. Allergies: Coded Allergies: No Known Allergies (Unverified Allergy, Unknown, 06/12/20) Home Meds Active Scripts Sulfamethoxazole/Trimethoprim (Bactrim Ds Tablet) 1 Each Tablet, 1 TAB PO BID for 7 Days, #14 TAB 0 Refills Prov:ISABEL NUNNP 11/19/22 Phenazopyridine HCl (Pyridium) 200 Mg Tab, 200 MG PO TIDPC for 3 Days, #9 TAB TAKE WITH FOOD TO PREVENT STOMACH UPSET. Prov:SHENG ARREAGA 09/18/22 Cefuroxime Axetil (Cefuroxime) 500 Mg Tablet, 500 MG PO BID for 10 Days, #20 TAB Prov:SHENG ARREAGA 09/18/22 Ibuprofen (Ibuprofen) 800 Mg Tablet, 800 MG PO Q8H PRN for PAIN, #30 TAB 0 Refills Prov:CLAYTON LIU MD 07/01/22 Sulfamethoxazole/Trimethoprim (Bactrim Ds Tablet) 1 Each Tablet, 1 TAB PO BID for 10 Days, #20 TAB 0 Refills Prov:CLAYTON LIU MD 07/01/22 Reported Medications Vits W-Ca,Fe,FA(<1Mg) ( Vitamins) 1 Each Tablet, 1 EACH PO DAILY, TAB 06/12/20 Past Medical History Past Medical History: No Pertinent History Medical History Other: Obese Past Surgical History: None Family History Family History: Negative Social History Social History: Negative Female( History) : 2 Para: 1 Aborts: 0 ROS Dictation CONSTITUTIONAL: Negative except for HPI HEAD/FACE: Negative except for HPI EENT: Negative except for HPI RESPIRATORY: Negative except for HPI GASTROINTESTINAL/ABDOMINAL: Negative except for HPI GENITOURINARY: Negative except for HPI MUSCULOSKELETAL: Negative except for HPI INTEGUMENTARY: Negative except for HPI NEUROLOGICAL/PSYCH: Negative except for HPI HEMATOLOGIC/LYMPHATIC: Negative except for HPI All Systems Negative, Except as noted above. 13 point review of systems assessed and all negative except for above. Physical Exam Physical Exam Dictation Vital Signs reviewed General Appearance: Alert, oriented x 3, no acute distress, well developed, nourished. Head and Face: non-traumatic. Eyes: PERRL, pink conjunctivas, eyelid no trauma, anterior chamber with arcus senilis. Ears: Pinnas intact and no signs of trauma or erythema ear canals clear and no discharge TM no erythema Nose: No discharge, no bleeding. Oropharynx: Mouth normal, tongue pink, pharynx clear,no erythema, tonsils no exudates, no abscesses noted, mucous membrane moist Neck: Supple, non-tender, no thyromegaly, no masses, no JVD, no bruits Breast:Deferred Chest:No tenderness, no crepitus, no paradoxical movement, no retractions Lungs:Clear, well-ventilated, symmetric, no rales, no wheezing, no rhonchi, no stridor, good breath sounds bilaterally Heart: Regular rate, regular rhythm, no murmur, no gallops Vascular: no peripheral edema, Abdomen: Soft, positive bowel sounds, nondistended, no guarding, nontender, no rebound, no masses no hepatomegaly, no splenomegaly, no Ghosh's sign, no hernias. Rectal: Deferred Genital: Deferred Neurological: Normal speech, motor function intact, sensory function intact Musculoskeletal: Neck nontender, full range of motion, back nontender, full range of motion, Extremities: nontender, full range of motion Skin: Color pink, dry, no turgor, no rash, no lacerations, no abrasions, no contusions. Lymphatic: Deferred Results Laboratory and Microbiology Lab and Micro Result Laboratory Tests Test 08/07/25 15:54 08/07/25 16:09 Urine Color YELLOW (YELLOW) Urine Appearance CLEAR (CLEAR) Urine pH 7.0 (5.0-8.0) Urine Specific [place] 1.024 (1.001-1.031) Urine Protein 10 mg/dL (NEGATIVE) H Urine Glucose (UA) NEGATIVE mg/dL (NEGATIVE) Urine Ketones NEGATIVE mg/dL (NEGATIVE) Urine Occult Blood LARGE (NEGATIVE) H Urine Nitrate NEGATIVE (NEGATIVE) Urine Bilirubin NEGATIVE mg/dL (NEGATIVE) Urine Urobilinogen 3 mg/dL (0.2-1.0) H Urine Leukocyte Esterase 75 Dayna/uL (NEGATIVE) H Urine RBC 51-100 /HPF (0-1) H Urine WBC 11-25 /HPF (0-1) H Urine Squamous Epithelial Cells RARE /HPF (0-2) Urine Other Crystals (Auto) 1 /HPF (None Seen) Urine Bacteria FEW /HPF (None Seen) White Blood Count 12.6 K/uL (4.8-10.8) H Red Blood Count 4.61 MIL/uL (4.00-5.50) Hemoglobin 14.0 g/dL (12.0-16.0) Hematocrit 41.8 % (36-48) Mean Corpuscular Volume 90.7 fL (79-99) Mean Corpuscular Hemoglobin 30.4 pg (27.0-33.0) Mean Corpuscular Hemoglobin Concent 33.5 g/dL (32.0-36.0) Red Cell Distribution Width 11.4 % (11.0-15.5) Platelet Count 377 K/uL (130-400) Mean Platelet Volume 7.9 fL (7.5-10.5) Immature Granulocyte % (Auto) 0.4 % (0-1) Neutrophils (%) (Auto) 72.2 % (40.0-77.0) Lymphocytes (%) (Auto) 21.6 % (21.0-51.0) Monocytes (%) (Auto) 4.8 % (3.0-13.0) Eosinophils (%) (Auto) 0.8 % (0.0-8.0) Basophils (%) (Auto) 0.2 % (0.0-5.0) Neutrophils # (Auto) 9.1 K/uL (1.8-7.7) H Lymphocytes # (Auto) 2.7 K/uL (1.0-4.8) Monocytes # (Auto) 0.6 K/uL (0.1-1.0) Eosinophils # (Auto) 0.10 K/uL (0.00-0.70) Basophils # (Auto) 0.03 K/uL (0.00-0.20) Absolute Immature Granulocyte (auto 0.05 K/uL (0-1) Nucleated Red Blood Cells 0.0 % (0.0-0.19) Sodium Level 133 mmol/L (136-145) L Potassium Level 3.6 mmol/L (3.5-5.1) Chloride Level 97 mmol/L (101-111) L Carbon Dioxide Level 29 mmol/L (21-32) Blood Urea Nitrogen 6 mg/dL (7-18) L Creatinine 0.6 mg/dL (0.5-1.0) Glomerular Filtration Rate Calc 125 mL/min (>90) Random Glucose 92 mg/dL (70-105) Total Calcium 9.0 mg/dL (8.5-10.1) Human Chorionic Gonadotropin, Quant 05339 mIU/mL (0-5) H Labs Reviewed?: Yes MDM MDM: The patient is a 29-year-old female who is currently presenting to the emergency department for evaluation of vaginal bleeding and lower abdominal cramping. Patient reports testing positive for gonorrhea proximally one week ago and has not been treated for it. She is a A0. She has an appointment scheduled with her OBGYN in four days. On physical examination patient is in no acute distress. Initial vital signs are stable. Patient is afebrile and nontoxic appearing. CBC shows slight leukocytosis. There was no anemia or thrombocytopenia. Chemistries are stable. Urinalysis shows white blood cells in the urine. Pelvic ultrasound reveals a gestational sac measuring a proximally six weeks and three days with positive heart tones. Given that the patient has not been treated for gonorrhea I will empirically treat with ceftriaxone and azithromycin. Differential diagnosis: 1st trimester , miscarriage, urinary tract infection, STD There are no social concerns with this patient. Prescription drug management Prescriptions will include: None Medical management and examination interpretation discussions were had by me with other qualified healthcare professionals as indicated for the patient's care. ED Course Orders Procedure Category Date Status Time Cbc With Differential LAB 08/07/25 Complete 15:54 Basic Metabolic Panel LAB 08/07/25 Complete 15:54 Hcg,Quantitative LAB 08/07/25 Complete 15:54 Urinalysis Profile LAB 08/07/25 Complete 15:54 Us Ob <14 Weeks US 08/07/25 Resulted 15:54 Culture Urine ZOHREH 08/07/25 In Process 16:08 Ceftriaxone 1g Vial PHA 08/07/25 In Process (Rocephine 1g Inj) 19:30 Azithromycin PHA 08/07/25 In Process (Zithromax) 19:30 Chlamydia & Gc Pcr ZOHREH 08/07/25 Logged 19:04 Current Medications Medications (Trade) Dose Ordered Sig/[place] Route PRN Reason Start Time Stop Time Status Last Admin Dose Admin Azithromycin (Zithromax) 1,000 mg ONCE ONCE PO 08/07/25 19:30 08/07/25 19:31 Ceftriaxone Sodium (ROCEphine 1G INJ) 1 gm ONCE ONCE IM 08/07/25 19:30 08/07/25 19:31 Vital Signs Date Time Temp Pulse Resp B/P (MAP) Pulse Ox O2 Delivery O2 Flow Rate FiO2 08/07/25 18:57 98.2 92 16 142/85 98 Room Air* 0 21 08/07/25 15:55 98.2 105 16 140/87 98 Room Air* 0 21 08/07/25 15:14 98.1 113 16 142/87 98 Room Air DX & DISP Disposition: Discharge Departure Impression: Primary Impression: First trimester Additional Impressions: Vaginal bleeding, Exposure to STD Condition: Stable Additional Instructions: Your blood work today is stable. Your pelvic ultrasound reveals a gestational sac measuring six weeks and three days with positive heart tones. You were treated for chlamydia and gonorrhea with 1 g of ceftriaxone and 1 g of azithromycin. Follow up with your OBGYN on Monday as discussed. You will need a full STD panel. Referrals: SELF,REFERRAL (PCP) Time of Disposition: 19:12 I have reviewed the case, and I agree with, Diagnosis and Plan I performed the substantive portion of the visit. I have reviewed and lisa roach made and approve the management plan that is documented in the note by myself or the SHANTEL. I acknowledge for responsibility for the patient's management plan. HUY DÍAZ Aug 07, 2025 19:01
[2025-08-07] MEDS: AZITHROMYCIN 250 MG TABLET PO ONE (19:13)
== END 2025-08-07 19:25 | disposition home or self-care (01) ==
LOC: EDH 15:13
DX: O20.9 Hemorrhage in early pregnancy, unspecified (principal); Z3A.08 8 weeks gestation of pregnancy; Z79.899 Other long term (current) drug therapy
CPT/HCPCS: 99285; 76801; 80048; 84702; 85025; 87086 ×2; 87186; 87491; 87591; 81001; 36415; 96372; J0696

== ENCOUNTER 2025-08-12 14:15 | Emergency (ER) | payer MEDICAID ==
[~2025-08-12] VITALS: Ht 154.9 cm; Wt 83.0 kg
[2025-08-12 14:18] VITALS: TEMP 97.5
[2025-08-12] MEDS ORDERED: 0.9% NACL 500ML IV.SOLN 500 ML IV ONE (15:00)
--- NOTE | 2025-08-12 15:00 | ERN ---
General Chief Complaint: Vaginal Bleeding Stated Complaint: VAGINAL BLEEDING Time Seen by MD: 14:18 Source: patient History of Present Illness Initial Comments This patient is a 39-year-old female with 6 weeks of . She presented with heavy bleeding and passing clots which was associated with cramping and pain in the suprapubic region. As per patient, she had chills but denied fever. Timing/Duration: 1 week Severity: moderate Associated Symptoms: nausea/vomiting Allergies: Coded Allergies: No Known Allergies (Unverified Allergy, Unknown, 06/12/20) Home Meds Active Scripts Sulfamethoxazole/Trimethoprim (Bactrim Ds Tablet) 1 Each Tablet, 1 TAB PO BID for 7 Days, #14 TAB 0 Refills Prov:ISABEL NUNN [employer] 11/19/22 Phenazopyridine HCl (Pyridium) 200 Mg Tab, 200 MG PO TIDPC for 3 Days, #9 TAB TAKE WITH FOOD TO PREVENT STOMACH UPSET. Prov:SHENG ARREAGA 09/18/22 Cefuroxime Axetil (Cefuroxime) 500 Mg Tablet, 500 MG PO BID for 10 Days, #20 TAB Prov:SHENG ARREAGA 09/18/22 Ibuprofen (Ibuprofen) 800 Mg Tablet, 800 MG PO Q8H PRN for PAIN, #30 TAB 0 Refills Prov:CLAYTON LIU MD 07/01/22 Sulfamethoxazole/Trimethoprim (Bactrim Ds Tablet) 1 Each Tablet, 1 TAB PO BID for 10 Days, #20 TAB 0 Refills Prov:CLAYTON LIU MD 07/01/22 Reported Medications Vits W-Ca,Fe,FA(<1Mg) ( Vitamins) 1 Each Tablet, 1 EACH PO DAILY, TAB 06/12/20 Past Medical History Past Medical History: No Pertinent History Medical History Other: Obese Past Surgical History: None Family History Family History: Negative Social History Social History: Negative Female( History) : 2 Para: 1 Aborts: 0 Constitutional: (+) chills, (+) weakness EENTM: (-) eye pain, (-) blurred vision, (-) tearing, (-) double vision, (-) ear pain, (-) ear discharge, (-) nose pain, (-) nose congestion, (-) throat pain, (-) Throat swelling, (-) mouth pain, (-) tooth pain, (-) mouth swelling, (-) other documentation Respiratory: (-) cough, (-) orthopnea, (-) short of breath, (-) stridor, (-) wheezing, (-) other documentation Cardiovascular: (-) chest pain, (-) edema, (-) palpitations, (-) syncope, (-) dyspnea on exertion, (-) other documentation Gastrointestinal/Abdominal: (-) nausea, (-) vomiting, (-) diarrhea, (-) abdominal pain, (-) abdominal distention, (-) constipation, (-) rectal bleeding, (-) dark stool/melena, (-) other documentation Nurses Notes Reviewed: Yes Physical Exam General Appearance: (+) apparent distress, (+) mild distress Orientation: (+) alert, (+) oriented x 3 Head/Face Trauma: No Ear, Nose, Throat: (-) hearing grossly normal, (-) normal ENT inspection, (-) moist mucous membraine, (-) normal pharynx, (-) normal TM, (-) abnormal TM, (-) pharyngeal erythema, (-) sinus drainange, (-) sinus pain, (-) tonsillar exudate, (-) tonsillar swelling, (-) nasal drip, (-) nasal congestion, (-) hearing decreased, (-) dry mucous membraine, (-) other documentation Neck: (-) normal inspection, (-) supple, (-) full range of motion, (-) no JVD, (-) non-tender, (-) no bruit, (-) tender, (-) limited range of motion, (-) tender lateral, (-) tender midline, (-) thyromegaly, (-) lymphadenopathy, (-) masses, (-) carotid bruit, (-) other documentaion Respiratory: (-) chest non-tender, (-) lungs clear, (-) well ventilated, (-) decreased breath sounds, (-) retractions, (-) abnormal breath sound, (-) crackles, (-) plerual rub, (-) rales, (-) rhonchi, (-) stridor, (-) wheezing, (- ) other documentation Results Laboratory and Microbiology Lab and Micro Result Laboratory Tests Test 08/12/25 15:05 White Blood Count 11.4 K/uL (4.8-10.8) H Red Blood Count 4.28 MIL/uL (4.00-5.50) Hemoglobin 13.4 g/dL (12.0-16.0) Hematocrit 38.9 % (36-48) Mean Corpuscular Volume 90.9 fL (79-99) Mean Corpuscular Hemoglobin 31.3 pg (27.0-33.0) Mean Corpuscular Hemoglobin Concent 34.4 g/dL (32.0-36.0) Red Cell Distribution Width 11.4 % (11.0-15.5) Platelet Count 356 K/uL (130-400) Mean Platelet Volume 8.2 fL (7.5-10.5) Nucleated Red Blood Cells 0.0 % (0.0-0.19) Sodium Level 132 mmol/L (136-145) L Potassium Level 3.6 mmol/L (3.5-5.1) Chloride Level 97 mmol/L (101-111) L Carbon Dioxide Level 27 mmol/L (21-32) Blood Urea Nitrogen 4 mg/dL (7-18) L Creatinine 0.6 mg/dL (0.5-1.0) Glomerular Filtration Rate Calc 125 mL/min (>90) Random Glucose 87 mg/dL (70-105) Total Calcium 8.8 mg/dL (8.5-10.1) Human Chorionic Gonadotropin, Quant 94676 mIU/mL (0-5) H EKG/XRAY/US/CT/MRI [place] [id number] IMAGING REPORT Signed PATIENT: CONTRERAS YAÑEZ MR#: [id number] : 1995 SEX: F AGE: 29 LOCATION: [facility] ORDER [id number] STATUS: REG ER REPORT#: [id number] SERVICE [id number] REASON: Bleeding during ORDERING PHYSICIAN: AMRIT LOPEZ MD PROCEDURE: OB <14 - US OB <14 WEEKS CLINICAL INFORMATION Vaginal bleeding COMPARISON US OB dated 08/07 15:59 EDT TECHNIQUE Transabdominal sonography of the pelvis. FINDINGS: GESTATION: Not seen in this study UTERUS: Uterus (LxHxW cm): 10.3 x 5.4 x 7 cm Endometrial thickness: 1.5 cm. CERVIX: Closed. Unremarkable. OVARIES: Right Ovary (LxHxW cm): 2.4 x 1.6 x 1.6 cm Left Ovary (LxHxW cm): 2.8 x 1.3 x 1.1 cm No adnexal masses. FREE FLUID: No free fluid. MISCELLANEOUS: CLINICAL INFORMATION Vaginal bleeding US OB dated 08/12 15:07 EDT TECHNIQUE Transabdominal sonography of the pelvis. IMPRESSION: No intrauterine identified. No adnexal masses. In a patient with a positive test, these findings may be due to an early intrauterine gestation, a nonvisualized ectopic or spontaneous . Follow-up sonography and beta hCG levels are recommended. /[place] DICTATED BY: BROWN GARG MD DATE: 08/12/251714 ELECTRONICALLY SIGNED BY: BROWN GARG MD DATE: 08/12/251714 [facility] Differential diagnosis: Pelvic bleeding, bleeding during . This patient presented with vaginal bleeding and clots at 6-week- of . It was associated with cramping in the lower abdomen. In order to assess fetus, ultrasound Ob less than 14 weeks and quantitative beta HCG were carried out. CBC and BMP were done to evaluate anemia or dehydration and look at renal parameters. Patient also complained of vomiting for which she was given Zofran. For abdominal pain, she was given Tylenol and 500 mL NS bolus for dehydration. Laboratory workup presents positive hCG ultrasound has been not disclose acute findings. I did advised her appropriate follow up with OBGYN as indicated in the past. ED Course Orders Procedure Category Date Status Time Acetaminophen 325 Tab PHA 08/12/25 Complete (Tylenol 325mg Tab 15:00 Cbc Without LAB 08/12/25 Complete Differential 14:39 Basic Metabolic Panel LAB 08/12/25 Complete 14:39 Hcg,Quantitative LAB 08/12/25 Complete 14:39 Ondansetron 4mg Inj PHA 08/12/25 Complete (Zofran 4mg Inj) 15:00 0.9% Nacl 500ml PHA 08/12/25 Complete Iv.Soln (Ns 500ml 15:00 Us Ob <14 Weeks US 08/12/25 Resulted 14:39 Current Medications Medications (Trade) Dose Ordered Sig/[place] Route PRN Reason Start Time Stop Time Status Last Admin Dose Admin Acetaminophen (TYLenol 325MG TAB) 325 mg ONCE ONCE PO 08/12/25 15:00 08/12/25 15:01 DC Ondansetron HCl (zoFRAN 4MG INJ) 4 mg ONCE ONCE IVP 08/12/25 15:00 08/12/25 15:01 DC Sodium Chloride 500 ml @ 0 mls/hr ONCE ONCE IV 08/12/25 15:00 08/12/25 15:01 DC Vital Signs Date Time Temp Pulse Resp B/P (MAP) Pulse Ox O2 Delivery O2 Flow Rate FiO2 08/12/25 14:18 97.5 108 18 132/70 98 Room Air DX & DISP Disposition: Discharge Departure Impression: Primary Impression: Miscarriage, threatened, early Condition: Stable Additional Instructions: FOLLOW-UP WITH PRIMARY CARE PROVIDER IN 1 TO 2 DAYS. TAKE MEDICATIONS DIRECTED HERE IN THE EMERGENCY ROOM. OKAY TO CONTINUE HOME MEDICATIONS UNLESS OTHERWISE DISCUSSED DURING YOUR VISIT IN THE EMERGENCY ROOM TODAY. RETURN TO YOUR NEAREST EMERGENCY ROOM IF SYMPTOMS WORSEN OR IF THERE IS NO IMPROVEMENT. CALL 911 IF YOU NEED IMMEDIATE ASSISTANCE. TAKE TYLENOL [id number] NEEDED AND IF NO CONTRAINDICATIONS ARE PRESENT. INCREASE ORAL HYDRATION. A WOUND CULTURE OR URINE CULTURE WAS ORDERED HERE IN THE EMERGENCY ROOM DEPARTMENT PLEASE FOLLOW-UP WITH PRIMARY CARE PROVIDER AND ADVISE THEM TO GET REPORTS FROM OUR FACILITY. IF YOU HAD ANY MARIELA WRAP/SPLINTS THAT WERE APPLIED HERE, PLEASE DO NOT REMOVE THEM UNTIL YOU SEE YOUR PRIMARY CARE OR SPECIALTY. Referrals: Referrals: SELF,REFERRAL (PCP) RONY CANNON MD Time of Disposition: 17:00 AMRIT LOPEZ MD Aug 12, 2025 15:00 INGRID GREEN MD Aug 12, 2025 16:24
[2025-08-12 15:26] LABS: NUCLEATED RED BLOOD CELLS 0.0 % (0.0-0.19); PLATELET COUNT (AUTO) 356.0 K/uL (130-400); RED BLOOD CELL COUNT(AUTO) 4.28 MIL/uL (4.00-5.50); RED CELL DISTRIBUTION WIDTH 11.4 % (11.0-15.5); WHITE BLOOD COUNT (AUTO) 11.4 K/uL (4.8-10.8)
[2025-08-12 15:36] LABS: CREATININE 0.6 mg/dL (0.5-1.0); GLOMERULAR FILTR. RATE CALC 125.0 mL/min (>90); GLUCOSE,RANDOM 87.0 mg/dL (70-105); SODIUM SERUM 132.0 mmol/L (136-145); UREA NITROGEN, BLOOD 4.0 mg/dL (7-18)
[2025-08-12 16:03] LABS: HCG,QUANTITATIVE 16250.0 mIU/mL (0-5)
--- NOTE | 2025-08-12 16:16 | HMCIMG ---
CLINICAL INFORMATION Vaginal bleeding COMPARISON US OB dated 08/07 15:59 EDT TECHNIQUE Transabdominal sonography of the pelvis. FINDINGS: GESTATION: Not seen in this study UTERUS: Uterus (LxHxW cm): 10.3 x 5.4 x 7 cm Endometrial thickness: 1.5 cm. CERVIX: Closed. Unremarkable. OVARIES: Right Ovary (LxHxW cm): 2.4 x 1.6 x 1.6 cm Left Ovary (LxHxW cm): 2.8 x 1.3 x 1.1 cm No adnexal masses. FREE FLUID: No free fluid. MISCELLANEOUS: CLINICAL INFORMATION Vaginal bleeding US OB dated 08/12 15:07 EDT TECHNIQUE Transabdominal sonography of the pelvis. IMPRESSION: No intrauterine identified. No adnexal masses. In a patient with a positive test, these findings may be due to an early intrauterine gestation, a nonvisualized ectopic or spontaneous . Follow-up sonography and beta hCG levels are recommended. /Elis
[2025-08-12 17:02] VITALS: BP 130/72; PULSE 97; RESP 16; O2SAT 98
== END 2025-08-12 17:00 | disposition home or self-care (01) ==
LOC: EDH 14:15
DX: O03.9 Complete or unspecified spontaneous abortion without complication (principal); O26.891 Other specified pregnancy related conditions, first trimester; R10.2 Pelvic and perineal pain; Z79.899 Other long term (current) drug therapy; Z3A.01 Less than 8 weeks gestation of pregnancy
CPT/HCPCS: 36415; 76801; 80048; 84702; 85027; 99284